=== PATIENT | female | born 1985 | race Caucasian/White ===

== ENCOUNTER 2017-12-03 06:00 | Inpatient (IN) | payer MEDICAID, OTHER, SELFPAY ==
--- NOTE | 2017-12-02 21:46 | PDOC.LDHP ---
Labor and Delivery H&P Chief complaint: scheduled induction HPI: 40 + wk iol at term Current gestational age (weeks): 40 Due date: 12/01/17 Dating criteria: last menstrual period, first trimester ultrasound, second trimester ultrasound Grav: 2 Para: 1 OB History Details: uncomplicated hx Current complications: none Abnormal US findings: No Past Medical History: none Current medications: pre-jordy vitamins Previous surgical history: none Social history: none - Physical Exam Vital signs reviewed and normal: yes General: NAD, resting Heart: RRR Lungs: CTAB Abdomen: gravid Extremeties: no edema FHT: category 1 - Vaginal Exam cm dilated: 2 Effacement: 75% Station: -1 - OB Labs Blood type: O RH: positive Antibody Screen: negative HIV: negative RPR: negative HEPSAg: negative 1 hour GCT: negative GBS: negative Urine drug screen: not done Rubella: immune - Assessment L&D Assessment: elective induction at term - Plan Plan: admit to L&D, anesthesia consult for pain management
[2017-12-03] MEDS ORDERED: Ondansetron HCl/PF 4 MG/2 ML Vial IVP PRN ×3 (06:11→20:36)
[2017-12-03] MEDS ORDERED: LR / Pitocin 40 units/1000 ml 1,000 ML IV PRN (06:11)
[2017-12-03] MEDS ORDERED: Lidocaine 1% (PF) 30 ML VIAL SC PRN (06:11)
[2017-12-03] MEDS ORDERED: Diphenoxylate HCl/Atropine Tablet PO PRN (06:11)
[2017-12-03] MEDS ORDERED: Ibuprofen 800 MG TAB PO PRN (06:11)
[2017-12-03] MEDS ORDERED: HYDROcodone/Acetaminophen 5/325 mg Tablet PO PRN ×4 (06:11→20:36)
[2017-12-03] MEDS ORDERED: Lactated Ringer's 1,000 ML IV SCH (06:11)
[2017-12-03] MEDS ORDERED: Promethazine HCl 25 MG/ML VIAL IM PRN ×3 (06:11→20:36)
[2017-12-03] MEDS ORDERED: LR 500 ML/Oxytocin 10 units 500 ML IV SCH (06:11)
[2017-12-03] MEDS ORDERED: Carboprost 250 MCG/ML AMP IM PRN (06:11)
[2017-12-03 06:34] VITALS: BMI 33.6
[2017-12-03] MEDS: Lactated Ringer's 1,000 ML IV SCH ×3 (06:50→15:35)
[2017-12-03 07:20] LABS: Hemoglobin 11.6 g/dL (12.0-16.0); Mean Corpuscular HGB CONC 33.3 g/dL (32.0-36.0); Mean Corpuscular Hemoglobin 27.7 pg (27.0-31.0); Mean Corpuscular Volume 83.1 fl (81.0-99.0); Mean Platelet Volume 10.3 fL (7.4-10.4); Platelet Count 200 thou/uL (130-400); RBC Distribution Width 13.7 % (11.5-14.5); Red Blood Cell (RBC) Count 4.19 mill/uL (4.20-5.40); White Blood Cell (WBC) Count 9.8 thou/uL (4.8-10.8)
[2017-12-03 07:56] LABS: HBSAg Index 0.21 S/CO (0-0.99); Hep B Surf Ag Non-Reactive S/CO (NonReactive); Syphilis Antibody Nonreactive (Nonreactive); Syphilis Antibody Index 0.05 S/CO (<1.00 Non-Reactive)
[2017-12-03] MEDS ORDERED: Bupivacaine 0.5% 20 ML, Fentanyl 400 MCG in Sodium Chloride 0.9% 72 ML EPIDURAL SCH (11:00)
[2017-12-03] MEDS ORDERED: diphenhydrAMINE 50 MG/ML VIAL IM PRN (13:49)
[2017-12-03] MEDS ORDERED: Zolpidem Tartrate 5 MG TAB PO PRN ×2 (13:49→20:36)
[2017-12-03] MEDS ORDERED: diphenhydrAMINE 50 MG/ML VIAL IVP PRN (13:49)
[2017-12-03] MEDS ORDERED: Naloxone HCl 0.4 mg/ml Vial IV PRN (13:49)
[2017-12-03] MEDS ORDERED: Fentanyl 5000 MCG/250 ML CADD IVPB PRN (13:49)
[2017-12-03] MEDS ORDERED: diphenhydrAMINE 25 MG CAP PO PRN ×2 (13:49→20:36)
[2017-12-03] MEDS ORDERED: Communication Order-Pharmacy FS SCH (14:00)
[2017-12-03] MEDS ORDERED: fentaNYL Citrate/PF 2,000 MCG in Sodium Chloride 0.9% 60 ML IV PRN (15:00)
[2017-12-03] MEDS ORDERED: Lanolin Ointment 7 GM TUBE TOP PRN (20:36)
[2017-12-03] MEDS ORDERED: Preparation H Ointment 28 GM TUBE PR PRN (20:36)
[2017-12-03] MEDS ORDERED: Milk Of Magnesia 30 ML UDCUP PO PRN (20:36)
[2017-12-03] MEDS ORDERED: Adacel (T-DAP) 0.5 ML VIAL IM ONE (20:36)
[2017-12-03] MEDS ORDERED: Bisacodyl 10 MG SUPP PR PRN (20:36)
[2017-12-03] MEDS ORDERED: LR / Pitocin 40 units/1000 ml 1,000 ML IV SCH (20:36)
[2017-12-03] MEDS ORDERED: traMADol HCl 50 MG TAB PO PRN (20:36)
[2017-12-03] MEDS: Docusate Calcium (SURFAK) 240 MG CAP PO SCH (21:25)
[2017-12-04] MEDS: Docusate Calcium (SURFAK) 240 MG CAP PO SCH ×2 (09:19→21:15)
[2017-12-04] MEDS: Prenatal Vitamin 1 TAB PO SCH (09:19)
[2017-12-05] MEDS: Prenatal Vitamin 1 TAB PO SCH (08:00)
[2017-12-05] MEDS: Docusate Calcium (SURFAK) 240 MG CAP PO SCH (08:00)
--- NOTE | 2017-12-05 09:52 | PDOC.PP ---
Post Progress Note Post Day #: 2 PO intake tolerated: yes Flatus: yes Ambulation: yes Vital Signs (12 hours) Temp Pulse Resp BP Pulse Ox 12/05/17 08:00 98.6 F 66 14 12/05/17 07:34 98.6 F 66 14 118/71 97 Weight Weight 184 lb - Physical Examination General: NAD Cardiovascular: no m/r/g, RRR Abdominal: + bowel sounds, lochia Extremities: negative homans (B) Neurological: no gross focal deficits Psychiatric: A&Ox3, normal affect Result Diagrams: 12/03/17 06:50 Additional Labs: Post Labs Blood Type O POSITIVE 12/03/17 06:50 Hep Bs Antigen Non-Reactive S/CO (NonReactive) 12/03/17 06:50 - Assessment/Plan doing well. dc on the 8th held for baby. dc this am
[2017-12-05 13:26] VITALS: BP 124/66; TEMP 98.7
== END 2017-12-05 16:12 | disposition home or self-care (01) | DRG 775 ==
LOC: L&D 06:00 → 3SE 20:29
PROVIDERS: ADMIT Obstetrics & Gynecology; ATTEND Obstetrics & Gynecology
PROC: 10E0XZZ Delivery of Products of Conception, External Approach (ICD-10-PCS; principal; 2017-12-03)
PROC: 0KQM0ZZ Repair Perineum Muscle, Open Approach (ICD-10-PCS; 2017-12-03)
DX: O34.219 Maternal care for unspecified type scar from previous cesarean delivery (principal); O70.1 Second degree perineal laceration during delivery; Z37.0 Single live birth; Z3A.40 40 weeks gestation of pregnancy
CPT/HCPCS: 85027; 86780; 87340; J3010; J3490; J7050; J7120